=== PATIENT | female | born 1955 | race Caucasian/White ===

== ENCOUNTER 2019-03-14 08:46 | Day surgery (SDC) | payer BC, MEDICARE ==
[2019-03-14] MEDS ORDERED: Depo-Medrol 40 MG/ML IM ONE (08:47)
[2019-03-14] MEDS ORDERED: LIDOCAINE HCL 2% 100 MG/5 ML IJ ONE (08:47)
[2019-03-14] MEDS ORDERED: XYLOCAINE 1% HCL 20 ML MDV IJ ONE (08:47)
[2019-03-14] MEDS ORDERED: Ketamine HCl 50 MG/ML IV ONE (08:47)
[2019-03-14] MEDS ORDERED: Xylocaine 1% Vial 30 ML PF IJ ONE (08:47)
[2019-03-14] MEDS ORDERED: DIPRIVAN 200 MG/20 ML IV ONE (08:47)
--- NOTE | 2019-03-14 12:20 | XRAY ---
Indication: Bilateral L4-S1 MBB. Intraoperative fluoroscopy was provided for 17 seconds. Single digital spot image submitted for interpretation demonstrates posterior needle tips projecting over the expected course of the left and right L4-S1 nerve roots. Correlate with intraoperative findings/report.
--- NOTE | 2019-03-14 12:22 | XRAY ---
17 seconds fluoroscopy time in surgery for bilateral L4-S1 MBB.
[2019-03-14] MEDS ORDERED: Lactated Ringers 1,000 ML IV ONE (13:47)
== END 2019-03-14 10:55 | disposition home or self-care (01) ==
LOC: SDC-PAIN 08:46
PROVIDERS: ATTEND Psychiatry & Neurology Pain Medicine
DX: M47.816 Spondylosis without myelopathy or radiculopathy, lumbar region (principal); J44.9 Chronic obstructive pulmonary disease, unspecified; I10 Essential (primary) hypertension; E11.9 Type 2 diabetes mellitus without complications; E78.00 Pure hypercholesterolemia, unspecified; G47.30 Sleep apnea, unspecified; Z79.899 Other long term (current) drug therapy
CPT/HCPCS: 64493; 64494; 72020; 77002; 82962; J1030; J2001; J2704